=== PATIENT | male | born 1960 | race African-American/Black ===

== ENCOUNTER 2023-05-24 20:45 | Emergency (ER) | payer OTHER, SELFPAY ==
--- NOTE | ~2023-05-24 | CT_ITS ---
EXAMINATION: CT ABDOMEN AND PELVIS WITH CONTRAST CLINICAL INFORMATION: Colitis COMPARISON: None available. TECHNIQUE: Multidetector volumetric images were obtained from the superior aspect of the liver through the pubic symphysis following administration 85 mL of Omnipaque 350 intravenous contrast. Sagittal and coronal reformatted images were obtained on the technologist's workstation. Oral contrast: No This CT examination was performed using dose optimization techniques as appropriate, variously including the following: *Automated exposure control *Adjustment of mA and/or kV according to patient size (this includes techniques or standardized protocols for targeted exams where dose is matched to indication/reason for exam; i.e. extremities or head) *Use of iterative reconstruction technique DLP: 311 mGy-cm FINDINGS: LUNG BASES: The visualized lung bases are unremarkable. LIVER, GALLBLADDER, AND BILIARY TREE: The liver is mildly enlarged at 17.4 cm with decreased attenuation consistent with hepatic steatosis. No focal hepatic lesion or biliary ductal dilatation is present. The gallbladder is unremarkable with no evidence of radiopaque gallstones, gallbladder wall thickening, or obvious pericholecystic inflammatory changes. PANCREAS: Unremarkable. SPLEEN: Unremarkable. ADRENAL GLANDS: Unremarkable. KIDNEYS AND URETERS: The kidneys are normal in size, shape, and attenuation. No hydronephrosis, hydroureter, or calculi seen. No perinephric stranding. Some tiny hypodensities are seen in the kidneys consistent with tiny cysts. There is a single large 1.4 cm benign simple cyst in the left kidney laterally. None of these findings require any additional imaging or follow-up. No worrisome solid renal masses. BLADDER: Unremarkable. GASTROINTESTINAL TRACT: The small and large bowel are unremarkable. There is no evidence of colitis. The appendix is unremarkable. ABDOMINAL WALL: No significant hernia is appreciated. LYMPH NODES: Normal. VASCULAR: Unremarkable. PELVIC VISCERA: There is mild BPH. Seminal vesicles appear normal OSSEOUS STRUCTURES: Mild scoliosis convex to the left. CT/CT abdomen pelvis w IV con IMPRESSION: 1. No evidence of colitis. 2. Mildly enlarged fatty liver. 3. Mild BPH. Fleischner guidelines were followed.
[2023-05-24 20:50] VITALS: BP 222/104; PULSE 96; RESP 16; TEMP 37.2; O2SAT 98; BMI 26.6
--- NOTE | 2023-05-24 20:59 | ED_ITS ---
HPI - General Adult General Chief complaint: Nausea/Vomiting/Diarrhea Stated complaint: food poisoning ? Time Seen by Provider: 05/24/23 22:45 Source: patient Mode of arrival: ambulatory Limitations: no limitations History of Present Illness HPI narrative: Patient used to be alcoholic in the past notdrinking much lately last drink was 4 days ago small amount. Patient had soup 2 days ago which was outside for last 5 days since having the suture patient been having diarrhea nausea and diffuse abdominal pain vomited about 4-5 times and same amount of watery stool with diffuse abdominal cramps no fever but patient having chills watery stool no blood in the stool no recent travel no other family member sick Related Data Previous Rx's Medication Instructions Recorded ciprofloxacin HCl 500 mg tablet 500 mg PO BID #10 tabs 05/25/23 (Cipro) magnesium oxide 400 mg PO DAILY #10 tabs 05/25/23 ondansetron 4 mg disintegrating 4 mg PO Q6-8H PRN nausea and 05/25/23 tablet vomiting #10 tabs Allergies Allergy/AdvReac Type Severity Reaction Status Date / Time No Known Allergies Allergy Mild UNKNOWN Verified 05/24/23 20:50 Review of Systems 2 Review of Systems: Yes all other systems are reviewed and are negative [facility] Social History Social History Alcohol intake: current Alcohol intake frequency: a few times a week Alcohol type: beer Smoked in Last 30 Days: No Use of substances other than those prescribed or required for medical reasons: No Advance Directives: No Advance Directives Information Provided: No Physical Exam ED Vital Signs: Vital Signs - 24 hr 05/24/23 20:50 05/24/23 22:04 05/25/23 00:00 Temperature 98.9 F 99.3 F 98.8 F Pulse Rate 96 86 83 Respiratory Rate 16 16 18 Blood Pressure 222/104 H 197/100 H 169/75 H Pulse Oximetry 98 99 98 Oxygen Delivery Method Room Air Room Air Room Air BMI result Body Mass Index 26.6 Appearance: Alert. Oriented X3. No acute distress. Eyes: PERRLA, No Nystagmus ENT: Pharynx normal. Oral Mucosa moist Neck: Normal inspection. Neck supple. CVS: Normal heart rate and rhythm. Pulses normal. Respiratory: No respiratory distress. Equal air entry bilateral, no wheezing/rales/rhonchi Abdomen: Soft , diffuse tenderness no rebound tenderness or guarding, Bowel sounds are present, no mass palpable, no CVA tenderness Skin: Skin warm and dry. Normal skin color. Normal skin turgor. Extremities: No lower extremity edema. No calf tenderness Neuro: Oriented X 3. No motor deficit. Course Course Course Narrative: RME: 62 yold male presents to the ED For diarrhea, sweating after eating 1 week old food. patient states lower abdominal cramping. labs ordered Medications Administered Discontinued Medications Generic Name Dose Route Start Last Admin Trade Name Freq PRN Reason Stop Dose Admin Sodium Chloride 1,000 mls @ 999 mls/hr 05/24/23 23:01 05/25/23 00:57 Ns IV 05/25/23 00:01 Infused .Q1H1M ONE Infusion Magnesium Sulfate 2 gm in 50 mls @ 150 mls/hr 05/24/23 23:02 05/24/23 23:50 Magnesium Sulfate/H2o IV 05/24/23 23:21 Infused ONCE ONE Infusion Iohexol 85 ml 05/24/23 23:57 05/24/23 23:58 Iohexol 350 Mg/Ml 100 Ml Infus..Btl IV 05/24/23 23:58 85 ml ONCE ONE Administration Levofloxacin 500 mg 05/25/23 01:11 05/25/23 01:16 Levofloxacin 500 Mg Tablet PO 05/25/23 01:12 500 mg ONCE ONE Administration Lorazepam 1 mg 05/25/23 01:16 05/25/23 01:23 Lorazepam 1 Mg Tablet PO 05/25/23 01:17 1 mg ONCE ONE Administration Ondansetron HCl 4 mg 05/25/23 01:06 05/25/23 01:16 Ondansetron Hcl 4 Mg/2 Ml Vial IVPUSH 05/25/23 01:07 4 mg ONCE ONE Administration Medical Decision Making Medical Decision Making MDM Narrative: Patient with nausea vomiting diarrhea after having the bed food likely the cause lab workup is stable with normal leukocyte count CT scan also negative patient was shaking likely patient is to drink alcohol and secondary to that a dose with low magnesium levels secondary to blood loss. Head steady lactic acidosis secondary to volume loss not from sepsis will discharge patient home advised to follow-up with PCP Differential Diagnosis Differential Diagnoses: The differential diagnosis associated with the presentation includes Gastroenteritis/food poisoning/diverticulitis Lab Data [facility] Lab Attestation statement: I reviewed the patient's lab results. 05/24/23 21:40 05/24/23 21:40 Labs: Lab Results 05/24/23 05/24/23 Range/Units 21:40 23:18 WBC 6.1 (4.8-10.8) X10*3/uL RBC 4.35 L (4.60-5.80) X10*6/uL Hgb 12.7 L (14.0-18.0) g/dl Hct 37.9 L (42.0-52.0) % MCV 87.1 (80.0-98.0) fL MCH 29.2 (27.0-33.0) pg MCHC 33.5 (31.0-36.0) g/dl RDW 11.6 (11.0-16.0) % Plt Count 98 L (160-400) X10*3/uL MPV 10.0 (9.4-12.4) fL Immature Gran % (Auto) 0.3 (0.0-0.4) % Neut % (Auto) 73.0 (45-73) % Lymph % (Auto) 12.2 L (20-40) % [place] % (Auto) 14.0 H (2-11) % Eos % (Auto) 0.3 (0-4) % Baso % (Auto) 0.2 (0-2) % Lymph # (Auto) 0.7 L (1.2-4.9) X10*3/uL [place] # (Auto) 0.9 (0.1-1.2) X10*3/uL Eos # (Auto) 0.0 (0.0-0.4) X10*3/uL Baso # (Auto) 0.0 (0.0-0.2) X10*3/uL Abs Immat Gran (auto) 0.02 (0.00-0.03) X10*3/uL Absolute Neuts (auto) 4.4 (2.0-8.3) x10*3/uL Absolute Nucleated RBC 0.000 (0.0-0.012) X10*3/uL Nucleated RBC % (auto) 0.0 (0.0-0.2) /100WBC Sodium 133 L (135-145) mmol/L Potassium 3.6 (3.3-5.1) mmol/L Chloride 98 (96-108) mmol/L Carbon Dioxide 25 (22-29) mmol/L Anion Gap 14 (12-20) BUN 9 (9-16) mg/dL Creatinine 0.95 (0.5-1.4) mg/dL Estim Creat Clear Calc 69.2 Estimated GFR > 60 Random Glucose 240 H (60-115) mg/dL Lactic Acid 2.2 H* (0.5-2.0) mmol/L Calcium 9.7 (8.4-10.2) mg/dL Magnesium 1.4 L* (1.6-2.6) mg/dL Total Bilirubin 2.3 H (0.0-1.0) mg/dL AST 136 H (5-37) U/L ALT 90 H (0-40) U/L Alkaline Phosphatase 84 (39-117) U/L Total Protein 7.6 (6.5-8.0) g/dL Albumin 4.5 (3.5-5.0) g/dL Lipase 69 (8-78) U/L Discharge Plan Discharge Clinical Impression: Gastroenteritis, Food poisoning Patient Disposition: Home, Self-Care Instructions: Gastroenteritis (DC), Food Poisoning (ED) Additional Instructions: Drink plenty of fluids Take medication for nausea as prescribed Take antibiotic as prescribed Your slightly low magnesium take magnesium tablets daily and have food containing high magnesium Stop drinking alcohol Prescriptions: New ciprofloxacin HCl [Cipro] 500 mg tablet 500 mg PO BID Qty: 10 0RF ondansetron 4 mg tablet,disintegrating 4 mg PO Q6-8H PRN (Reason: nausea and vomiting) Qty: 10 0RF magnesium oxide 400 mg magnesium tablet 400 mg PO DAILY Qty: 10 0RF Interventions: ED Discharge Assessment Last Done: 05/25/23 01:38 Discharge Date/Time: 05/25/23 01:38
[2023-05-24 21:48] LABS: MANUAL DIFF FLAG NO
[2023-05-24 21:51] LABS: Basophils Percent Auto 0.2 % (0-2); Eosinophils Percent Auto 0.3 % (0-4); Hematocrit 37.9 % (42.0-52.0); Hemoglobin 12.7 g/dl (14.0-18.0); Imm Gran Abs Auto 0.02 X10*3/uL (0.00-0.03); Imm Gran Pct Auto 0.3 % (0.0-0.4); Lymphocytes Absolute Auto 0.7 X10*3/uL (1.2-4.9); Lymphocytes Percent Auto 12.2 % (20-40); Mean Corpuscular HGB Conc 33.5 g/dl (31.0-36.0); Mean Corpuscular Hemoglobin 29.2 pg (27.0-33.0); Mean Corpuscular Volume 87.1 fL (80.0-98.0); Monocytes Absolute Auto 0.9 X10*3/uL (0.1-1.2); Neutrophils Absolute Auto 4.4 x10*3/uL (2.0-8.3); Red Blood Count 4.35 X10*6/uL (4.60-5.80); Red Cell Distribution Width 11.6 % (11.0-16.0); White Blood Count 6.1 X10*3/uL (4.8-10.8)
[2023-05-24 21:52] LABS: Platelet Count 98 X10*3/uL (160-400)
[2023-05-24 22:04] VITALS: BP 197/100; PULSE 86; RESP 16; TEMP 37.4; O2SAT 99
[2023-05-24 22:13] LABS: Alanine Aminotransferase 90 U/L (0-40); Albumin Level 4.5 g/dL (3.5-5.0); Alkaline Phosphatase 84 U/L (39-117); Anion Gap 14 (12-20); Aspartate Amino Transferase 136 U/L (5-37); Bilirubin Total 2.3 mg/dL (0.0-1.0); Blood Urea Nitrogen 9 mg/dL (9-16); Calcium 9.7 mg/dL (8.4-10.2); Carbon Dioxide 25 mmol/L (22-29); Chloride 98 mmol/L (96-108); Creatinine Clr Calc Pharmacy 69.2; Estimated Glomerular Filt Rate > 60; Glucose Random 240 mg/dL (60-115); Lipase 69 U/L (8-78); Magnesium 1.4 mg/dL (1.6-2.6); Potassium 3.6 mmol/L (3.3-5.1); Sodium 133 mmol/L (135-145); Total Protein 7.6 g/dL (6.5-8.0)
[2023-05-24] MEDS: Magnesium Sulfate/H2O 2 GM/50 ML PIGGYBACK IV (23:19)
[2023-05-24] MEDS: 0.9 % Sodium Chloride 1,000 ML 999 ML IV (23:19)
[2023-05-24 23:39] LABS: Lactic Acid 2.2 mmol/L (0.5-2.0)
[2023-05-24] MEDS: iohexoL 350 MG/ML 100 ML INFUS..BTL 85 ML IV (23:58)
[2023-05-25] VITALS: BP 169/75; PULSE 83; RESP 18; TEMP 37.1; O2SAT 98
[2023-05-25] MEDS: levoFLOXacin 500 MG TABLET PO (01:16)
[2023-05-25] MEDS: ondansetron HCL 4 MG/2 ML VIAL IVPUSH (01:16)
[2023-05-25 01:22] LABS: Reflex Lactate? Lactic Acid Added
[2023-05-25] MEDS: LORazepam 1 MG TABLET PO (01:23)
== END 2023-05-25 01:38 | disposition home or self-care (01) ==
PROVIDERS: Emergency Provider Internal Medicine; PCP Internal Medicine
DX: K52.9 Noninfective gastroenteritis and colitis, unspecified (principal); R11.2 Nausea with vomiting, unspecified; A05.9 Bacterial foodborne intoxication, unspecified; Z79.899 Other long term (current) drug therapy
CPT/HCPCS: 36415; 74177; 80053; 83605; 83690; 83735; 85025; 87040; 87147; 87205; 96361; 96365; 96375; 99284; J2405; J3475; Q9967